=== PATIENT | female | born 1965 | race Caucasian/White ===

== ENCOUNTER 2022-05-20 11:11 | Emergency (ER) | payer OTHER, SELFPAY ==
[2022-05-20] VITALS (14 sets, daily range): BP systolic 90–136; BP diastolic 47–73; PULSE 77–103; TEMP 37.2–37.3; O2SAT 94–97; BMI 44.9
--- NOTE | 2022-05-20 11:59 | ED_ITS ---
HPI - General Adult General Chief complaint: Chest Pain Stated complaint: Chest heaviness Time Seen by Provider: 05/20/22 11:29 History of Present Illness HPI narrative: 56-year-old woman presenting to the emergency department on advice of work to be evaluated. She has had over the last day chills, sore throat, myalgias. She is fully vaccinated for COVID and influenza. She just feels ?not right?. Has had some diarrhea though this has been going on for about a month and she suspects related to some bad food ingestion and just has not managed to normalize. No rashes. No vomiting. Note is made of 1st degree heart block and with that this along with some chest pressure (does note a history of suspected radicular pain from back manifesting as chest discomfort) was recommended to go to the ER. Not exactly describing shortness of breath. Has COVID tested herself twice at home and been negative. Wonders about potential influenza. Related Data Home Medications Medication Instructions Recorded Confirmed COVID-19 antigen test ([facility] 05/20/22 05/20/22 COVID-19 Antigen Home Test kit) atorvastatin 10 mg tablet mg 05/20/22 buspirone 30 mg tablet mg 05/20/22 citalopram 20 mg tablet mg 05/20/22 levothyroxine 200 mcg tablet mcg 05/20/22 levothyroxine 25 mcg tablet mcg 05/20/22 levothyroxine 50 mcg tablet mcg 05/20/22 lorazepam 0.5 mg tablet mg 05/20/22 montelukast 10 mg tablet mg 05/20/22 orphenadrine citrate 100 mg mg PO 05/20/22 tablet,extended release torsemide 5 mg tablet mg 05/20/22 trazodone 100 mg tablet mg 05/20/22 Allergies Allergy/AdvReac Type Severity Reaction Status Date / Time adhesive Allergy Unknown Verified 05/20/22 11:35 latex Allergy Unknown Verified 05/20/22 11:35 NSAIDS (Non-Steroidal Allergy Unknown Verified 05/20/22 11:35 Anti-Inflamma pollen extracts Allergy Unknown Verified 05/20/22 11:35 Review of Systems Status of ROS: Reports: 6 or more systems reviewed and unremarkable except as noted in History and below PFSH PFSH Social History Smoking Status: Former smoker Do you use any of these nicotine containing products: None Second hand tobacco smoke exposure: No How often do you have a drink containing alcohol: monthly or less AUDIT-C Alcohol total score: 1 Non-prescribed substance use: denies use Exam Narrative: Exam Narrative: Pleasant. Easily conversant. Appears tired. Not tachypneic but slightly labored in breaths. Clearly uncomfortable. Skin is warm and dry. No rash is evident. No extremity edema. Well perfused central and peripherally. Lungs are clear. Heart in an elevated rate at a regular rhythm. Abdomen is soft and nontender. Normoactive bowel sounds. Oropharynx WNL. Const: Vital Signs, click to edit/add: Vital Signs - 24 hr 05/20/22 11:26 05/20/22 11:36 05/20/22 11:44 Temperature 99.2 F Pulse Rate 86 86 Pulse Rate [Pulse Oximeter] 103 H Blood Pressure 129/56 L Blood Pressure [Ri ght Upper Arm] 136/73 Pulse Oximetry 96 94 95 Oxygen Delivery Me thod Room Air 05/20/22 12:00 05/20/22 12:02 05/20/22 12:20 Temperature 98.9 F Pulse Rate 82 84 Pulse Rate [Pulse Oximeter] Blood Pressure 123/55 L Blood Pressure [Ri ght Upper Arm] Pulse Oximetry 97 95 Oxygen Delivery Me thod 05/20/22 12:03 05/20/22 12:30 05/20/22 12:34 Temperature Pulse Rate 83 85 78 Pulse Rate [Pulse Oximeter] Blood Pressure 104/58 L Blood Pressure [Ri ght Upper Arm] Pulse Oximetry 96 97 97 Oxygen Delivery Me thod 05/20/22 12:35 05/20/22 13:00 05/20/22 13:01 Temperature Pulse Rate 81 77 80 Pulse Rate [Pulse Oximeter] Blood Pressure 92/50 L Blood Pressure [Ri ght Upper Arm] Pulse Oximetry 97 97 97 Oxygen Delivery Me thod 05/20/22 13:30 05/20/22 13:32 Temperature Pulse Rate 80 79 Pulse Rate [Pulse Oximeter] Blood Pressure 90/47 L Blood Pressure [Ri ght Upper Arm] Pulse Oximetry 95 97 Oxygen Delivery Me thod Documenting provider has reviewed patient's vital signs: yes Course Vital Signs Vital signs: Initial Vital Signs Temperature 99.2 F 05/20/22 11:26 Temperature Source Temporal Artery Scan 05/20/22 11:26 Pulse Rate 103 H 05/20/22 11:26 Blood Pressure 136/73 05/20/22 11:26 Blood Pressure Mean 94 05/20/22 11:26 Blood Pressure Position Sitting 05/20/22 11:26 Pulse Oximetry 96 05/20/22 11:26 Oxygen Delivery Method 05/20/22 11:26 Vital Signs Temperature 99.2 F 05/20/22 11:26 Pulse Rate 103 H 05/20/22 11:26 Blood Pressure 136/73 05/20/22 11:26 Pulse Oximetry 96 05/20/22 11:26 Oxygen Delivery Method 05/20/22 11:26 Temperature 98.9 F 05/20/22 12:20 Pulse Rate 79 05/20/22 13:32 Blood Pressure 90/47 L 05/20/22 13:32 Pulse Oximetry 97 05/20/22 13:32 Oxygen Delivery Method 05/20/22 11:26 Medical Decision Making MDM Narrative Medical decision making narrative: Really seems to have viral mediated illness. With suspect chest pressure continuum of myalgias. It appears she would like to feel little bit better and so IV is established. Receives normal saline IV and ketorolac injection. On reassessment is a generally improved though sore throat lingers. Labs are reassuring with mildly elevated white count pending troponin. Negative for COVID influenza. Negative troponin Lab Data Labs: Lab Results 05/20/22 05/20/22 05/20/22 Range/Units 11:15 11:40 11:40 WBC 12.73 H (4.50-11.00) K/uL RBC 4.29 (4.00-5.20) m/uL Hgb 13.2 (12.0-16.0) gm/dL Hct 39.3 (33.0-51.0) % MCV 92 (80-100) fL MCH 31 (26-34) pg MCHC 34 (32-36) gm/dL RDW Coeff of Joel 12.6 (11.5-15.5) % Plt Count 190 (140-440) K/uL Neut % (Auto) 74.0 H (42.0-72.0) % Lymph % (Auto) 12.6 L (20-44) % Green % (Auto) 12.1 H (0.0-11.0) % Eos % (Auto) 0.8 (0.0-7.0) % Baso % (Auto) 0.3 (0.0-3.0) % Neut # (Auto) 9.40 H (1.7-7.0) K/uL Lymph # (Auto) 1.60 (0.90-2.90) K/uL Green # (Auto) 1.50 H (0.00-0.90) K/UL Eos # (Auto) 0.10 (0.00-0.50) K/uL Baso # (Auto) 0.00 (0.00-0.30) K/uL Sodium 139 (135-149) mmol/L Potassium 4.0 (3.6-5.1) mmol/L Chloride 106 (96-114) mmol/L Carbon Dioxide 29 (20-32) mmol/L BUN 10 (7-30) mg/dL Creatinine 0.7 (0.5-1.5) mg/dL Estimated Creat Clear 78.83 Estimated GFR 100 ml/min Glucose 108 (60-115) mg/dL Calcium 8.8 (8.4-10.6) mg/dL Troponin I < 0.01 L (0.01-0.04) ng/mL SARS-CoV-2 (PCR) Negative SARS-CoV-2 (Negative) Influenza Type A (PCR) Negative PCR FLU A (Negative) Influenza Type B (PCR) Negative PCR FLU B (Negative) RSV (PCR) Negative PCR RSV (Negative) ECG Data Attestation: I personally reviewed and interpreted this ECG as follows: (Sinus rhythm with first-degree AV block rate of 90) Discharge Plan Discharge Clinical Impression: Myalgia, Viral illness, Pharyngitis Condition: Improved Instructions: Pharyngitis (ED) Additional Instructions: Continue to focus on hydration. I do hope you are feeling better in 24-48 hours. Of course return for increasing persistent shortness of breath, uncontrolled fever, significant increase in intensity or unusual quality to chest pain. Sounds like you have pain medications that might yet be helpful. Prescriptions: No Action atorvastatin 10 mg tablet levothyroxine 25 mcg tablet citalopram 20 mg tablet lorazepam 0.5 mg tablet trazodone 100 mg tablet torsemide 5 mg tablet levothyroxine 50 mcg tablet buspirone 30 mg tablet orphenadrine citrate 100 mg tablet extended release PO montelukast 10 mg tablet levothyroxine 200 mcg tablet (DME) [employer] COVID-19 Ag Home Test Kit MISCELLANEOUS Follow Up/Referrals: Paty Hernandez MD [Primary Care Provider] -
[2022-05-20] MEDS: 0.9 % SODIUM CHLORIDE 1000 ml 1,000 ML IV (12:01)
[2022-05-20] MEDS: KETOROLAC 30 MG/ML inj IVP (12:01)
[2022-05-20 12:04] LABS: Basophils Percent Auto 0.3 % (0.0-3.0); Eosinophils Percent Auto 0.8 % (0.0-7.0); Hematocrit 39.3 % (33.0-51.0); Hemoglobin* 13.2 gm/dL (12.0-16.0); Immature Granulocytes Pct Auto 0.2 %; Lymphocytes Percent Auto 12.6 % (20-44); Mean Corpuscular HGB Conc 34 gm/dL (32-36); Mean Corpuscular Hemoglobin 31 pg (26-34); Mean Corpuscular Volume 92 fL (80-100); Monocytes Percent Auto 12.1 % (0.0-11.0); Platelet Count* 190 K/uL (140-440); RDW Coefficient of Variation % 12.6 % (11.5-15.5); Red Blood Count 4.29 m/uL (4.00-5.20); White Blood Count* 12.73 K/uL (4.50-11.00)
[2022-05-20 12:04] LABS: PCR FLU A Negative PCR FLU A (Negative); PCR FLU B Negative PCR FLU B (Negative); PCR RSV Negative PCR RSV (Negative)
[2022-05-20 12:09] LABS: SARS PCR* Negative SARS-CoV-2 (Negative)
[2022-05-20 12:12] LABS: Chloride* 106 mmol/L (96-114)
[2022-05-20 12:13] LABS: Sodium* 139 mmol/L (135-149)
[2022-05-20 12:15] LABS: Carbon Dioxide* 29 mmol/L (20-32); Creatinine* 0.7 mg/dL (0.5-1.5); Est. Creatinine Clearance* 78.83; Estimated Glomerular Filt Rate 100 ml/min; Slide Review Reflex No
[2022-05-20 12:16] LABS: Blood Urea Nitrogen* 10 mg/dL (7-30); Calcium* 8.8 mg/dL (8.4-10.6); Glucose* 108 mg/dL (60-115)
[2022-05-20 13:28] LABS: Troponin I* < 0.01 ng/mL (0.01-0.04)
== END 2022-05-20 14:08 | disposition home or self-care (01) ==
PROVIDERS: Emergency Provider Family Medicine; PCP Family Medicine
DX: J02.9 Acute pharyngitis, unspecified (principal); M79.10 Myalgia, unspecified site; B34.9 Viral infection, unspecified
CPT/HCPCS: 36415; 80048; 84484; 85025; 87502; 87634; 87635; 93005; 96374; 99283; 99284; J1885; J7030

== ENCOUNTER 2022-07-09 08:04 | Outpatient (CLI) | payer OTHER, SELFPAY ==
--- NOTE | 2022-07-09 08:15 | MR_ITS ---
[address] [address] Phone:?[phone] Fax:?[phone] Referring Physician Information: Paty Hernandez M.D. [address] [facility] [address] Phone:?[phone] Fax:?[phone] Patient:Marie Arriaga D.O.B:?1965 Sex:?Female Phone:?[phone] [facility] MRN:?[id number] Exam Date:?07/09/2022 ? EXAM: MRI of the RIGHT SHOULDER, without contrast CLINICAL HISTORY: Chronic right shoulder pain. COMPARISONS: None available. TECHNICAL: MRI sequences of the right shoulder: Axials: PD, T2 Coronals: PD, STIR, T2 Sagittals: PD, T2 SEDATION: None CONTRAST: None FINDINGS: Bones: No fracture or suspicious bone marrow signal abnormality. Coracoacromial arch: Acromion: No os acromiale. Type I-II acromion. Acromiohumeral space: The bony distance is unremarkable. Coracohumeral space: The bony distance is unremarkable. Acromioclavicular joint: Moderate degenerative changes with substantial superior osteophytosis/hypertrophy and mild inferior osteophytosis/hypertrophy effacing the adjacent portion of the supraspinatus myotendinous junction. Coracoclavicular ligament: The coracoclavicular ligament is intact. Rotator cuff muscles/tendons: Supraspinatus: 8 x 8 mm high-grade partial-thickness bursal sided tear of the supraspinatus tendon insertional footprint contacts the cortical insertional surface and is superimposed upon mild supraspinatus tendinopathy. No muscular atrophy. Infraspinatus: Interstitial delamination and mild tendinopathy of the infraspinatus tendon. No muscular atrophy. Teres minor: The teres minor tendon and muscle are intact. Subscapularis: The subscapularis tendon and muscle are intact. Labrum and glenohumeral joint: Fraying/ill-defined tearing of the superior and posterosuperior portions of the labrum. Small glenohumeral joint effusion. No full-thickness chondral defect or subchondral bone marrow edema/cystic change is seen. No convincing evidence of capsular edema or thickening although evaluation is suboptimal because of lack of joint distention. Proximal biceps tendon, long head and short heads: The long and short heads of the proximal biceps tendon are intact. Bursae: Subacromial/subdeltoid: Marked bursitis. Subcoracoid: No convincing subcoracoid bursal thickening/bursitis. IMPRESSION: 1. 8 x 8 mm high-grade partial-thickness bursal sided tear of the supraspinatus tendon insertional footprint contacts the cortical insertional surface and is superimposed upon mild supraspinatus tendinopathy. 2. Interstitial delamination and mild tendinopathy of the infraspinatus tendon. 3. Marked subacromial/subdeltoid bursitis. 4. Moderate acromioclavicular joint degenerative changes with substantial superior osteophytosis/hypertrophy and mild inferior osteophytosis/hypertrophy effacing the adjacent portion of the supraspinatus myotendinous junction. 5. Fraying/ill-defined tearing of the superior and posterosuperior portions of labrum. 6. Small glenohumeral joint effusion. 7. Intact biceps tendon. RCB Electronically signed on 07/09/2022 11:37:00 AM by Eduar Chavez M.D.
== END 2022-07-09 08:05 | disposition home or self-care (01) ==
LOC: MRI 08:05
PROVIDERS: PCP Family Medicine; Visit Provider Family Medicine
DX: M25.511 Pain in right shoulder (principal); M75.101 Unspecified rotator cuff tear or rupture of right shoulder, not specified as traumatic; M75.51 Bursitis of right shoulder; M19.011 Primary osteoarthritis, right shoulder; S43.431A Superior glenoid labrum lesion of right shoulder, initial encounter; M25.411 Effusion, right shoulder
CPT/HCPCS: 73221

== ENCOUNTER 2022-10-15 06:59 | Day surgery (SDC) | payer OTHER, SELFPAY ==
[2022-10-15] VITALS (17 sets, daily range): BP systolic 83–132; BP diastolic 48–75; PULSE 49–89; RESP 10–16; TEMP 36.1–36.7; O2SAT 91–96; BMI 46.5
[2022-10-15] MEDS: ACETAMINOPHEN 500 MG TABLET 1000 MG PO (07:27)
[2022-10-15] MEDS: OXYCODONE (CR) 10 MG TAB.ER.12H PO (07:27)
[2022-10-15] MEDS: LACTATED RINGERS 1000 ML 1,000 ML 100 ML IV (07:30)
[2022-10-15] MEDS: SODIUM CHLORIDE 0.9 % (FLUSH) 10 ML SYRINGE IVF (07:30)
[2022-10-15] MEDS: fentaNYL 100 MCG/2 ML inj IVP (08:22)
[2022-10-15] MEDS: MIDAZOLAM HCL 1 MG/ML inj IVP (08:22)
--- NOTE | 2022-10-15 08:29 | SUR.PREOP ---
TIME?OUT:?0825 PT/RN/MDA?VERIFICATION?OF?SURGICAL?SITE,?PROCEDURE,?AND?CONSENT OBTAINED?PRIOR?TO?INVASIVE?PROCEDURE.
[2022-10-15] MEDS: CEFAZOLIN 2 GM INJ IVP (08:50)
[2022-10-15] MEDS: EPINEPHrine 1 MG in SODIUM CHLORIDE IRRIG SOLUTION 3,000 ML 3001 MG IRRIGATION ×4 (08:50→09:50)
--- NOTE | 2022-10-15 09:59 | P.NB_ITS ---
Nerve Block Nerve Block Time Seen by Provider: 08:27 Date Seen: 10/15/22 Type of block requested by surgeon for post-operative analgesia: supraclavicular Side: right Time out performed: Yes Verification of patient name: Yes Verification of date of : Yes Site marking: site marked Name of person performing procedure: Simin Assistants, if any: Cipriano Continuous monitoring Was continuous monitoring of O2 sat, B/P, nuclear monitoring technician, recorded every 15 minutes?: Yes Procedure Checklist: sterile prep, needles and gloves Ultrasound guided. Images saved: Yes Medications given in 5ml increments after negative aspiration: Ropivicaine %: 0.5 mL: 20 Needle gauge: 22 Decadron (mg): 10 Precedex (mcg): 25 Patient tolerated procedure well: Yes Block Charges Block Charge (with Pro Fee): Brachial Plexus Use of Ultrasound Machine for Block: Yes- US Guidance/pain block
--- NOTE | 2022-10-15 10:00 | W.ANESCHARGE ---
Anesthesia Charges Start Date/Time Anesthesia Start Date: 10/15/22 Anesthesia Start Time: 08:40 Stop Date/Time Anesthesia Stop Date: 10/15/22 Anesthesia Stop Time: 10:51
--- NOTE | 2022-10-15 10:20 | PM.ORPRC ---
Procedure Note Date of procedure: 10/15/22 Procedure: PREOPERATIVE DIAGNOSIS: Right shoulder rotator cuff tear, AC joint arthrosis POSTOPERATIVE DIAGNOSIS: Right shoulder rotator cuff tear, AC joint arthrosis NAME OF OPERATION: Right shoulder arthroscopic subacromial decompression, distal clavicle excision, mini open rotator cuff repair SURGEON: Stanford Branch MD EXPORT COORDINATOR: REINALDO Devries ANESTHESIA: Supraclavicular block plus general endotracheal ESTIMATED BLOOD LOSS: 5 mL COMPLICATIONS: None SPECIMENS: None DRAINS: None PREOPERATIVE ANTIBIOTICS: Ancef 3 grams INDICATIONS: The patient is a 57-year-old with a history of right shoulder pain secondary to the above diagnoses. Despite appropriate non operative management, they continue to have symptoms. Operative intervention was recommended. The risks, benefits and expected outcomes were discussed in detail. These included but were not limited to: Infection, bleeding, injury to blood vessel or nerve, venous thromboembolism. All questions were answered to their satisfaction. PROCEDURE: A supraclavicular block was placed by Anesthesia. General anesthesia was administered. The patient was placed in the high beach chair position. The right shoulder was prepped and draped in the usual sterile fashion. The glenohumeral joint was infiltrated with 20 mL of normal saline with epinephrine. The posterior portal was established, the arthroscope was introduced. The anterior portal was established, Diagnostic arthroscopy was performed with findings as follows: The biceps and biceps anchor are intact. The anterior, posterior and superior labrum are normal. Articular surfaces on the humeral head and glenoid are normal. There are no loose bodies. There is a high-grade partial-thickness/small full-thickness tear of the supraspinatus. The subscap is intact. The undersurface of the supraspinatus was debrided with the shaver, exposing the full-thickness tear. The arthroscope was placed in the subacromial space, the lateral portal was established. The Arthrex Anita was used to dissect the acromion free. The CA ligament was recessed off the anterior acromion, the AC joint was exposed. The acromioplasty was performed with the bur in the posterior portal. The bur was then placed in the lateral portal and the lateral and anterior aspect of the acromion were resected. The undersurface of the distal clavicle was resected through the lateral portal. Finally, the bur was placed in the anterior portal and the remainder of the distal clavicle was resected for a total of 10 mm. An accessory anterolateral portal was placed. The subacromial/subdeltoid bursa was aggressively debrided. There is a small full-thickness tear of the supraspinatus. Arthroscopic instruments were removed. The accessory anterolateral portal was extended proximally and distally, subcutaneous dissection was taken with electrocautery to the deltoid. The deltoid was divided in line with its fibers. The static retractor was placed. The subacromial/subdeltoid bursa was debrided with the Gonzalez scissors. The greater tuberosity was debrided to punctate bleeding bone using the arthroscopic bur. An Arthrex BioComposite SwiveLock anchor was placed just off the articular surface. Both limbs of the FiberWire and fiber tape were passed using the scorpion. A fiber link was placed in the leading edge of the rotator cuff x2. We then proceeded with a lateral row of SwiveLock anchors x 2 crossing the FiberTape and incorporating the FiberWire and fiber link into each lateral row anchor. The FiberWire suture in the eyelet of the posterior, lateral row anchor was passed with the leading edge of the rotator cuff and tied, resulting in a simple suture. The anterior FiberWire suture in the eyelet was unloaded. This provides an anatomic, watertight repair of the rotator cuff. There is no tension on the repair with the shoulder at 0? abduction. The wound was irrigated with normal saline off the pump. The deltoid was repaired with an 0 Vicryl in an interrupted [id number] fashion. Subcutaneous tissues were closed with a 3-0 Vicryl. Skin was closed with a 3-0 Monocryl in a subcuticular fashion. A dry dressing, polar care and sling were applied. Sponge and needle counts were correct x2. The patient tolerated the procedure well. There were no apparent complications. They were carefully transferred to the hospital bed and taken to the postanesthesia care unit in satisfactory condition. PLAN: The patient will be discharged to home. No active range of motion of the shoulder will be allowed for 6 weeks postoperatively. They can work on active range of motion of the elbow, wrist and fingers. They will follow up in the office next week for a wound check and an AP and transscapular Y-view of the shoulder prior to being seen.
--- NOTE | 2022-10-15 10:53 | W.ANESCHARGE ---
Anesthesia Charges Start Date/Time Anesthesia Start Date: 10/15/22 Anesthesia Start Time: 08:40 Stop Date/Time Anesthesia Stop Date: 10/15/22 Anesthesia Stop Time: 10:51
[2022-10-15] MEDS: ONDANSETRON 2 MG/ML inj 4 MG IVP (11:36)
--- NOTE | 2022-10-15 11:47 | SUR.PHASEII ---
pt tolerating ice chips, c/o nausea, zofran given. at bedside.
--- NOTE | 2022-10-15 11:57 | SUR.PHASEII ---
report given, pts vss, at bedside. still c/o nausea, tolerating small amounts of ice chips. warm blankets given. polar care on, began reviewing discharge instrucions with pt and pt's .
== END 2022-10-15 13:00 | disposition home or self-care (01) ==
PROVIDERS: PCP Family Medicine; Visit Provider Orthopaedic Surgery
PROC: (CPT 23412; principal; 2022-10-15 08:30)
DX: M75.101 Unspecified rotator cuff tear or rupture of right shoulder, not specified as traumatic (principal); M19.011 Primary osteoarthritis, right shoulder; G89.18 Other acute postprocedural pain
CPT/HCPCS: 29826; 29824; 23412; 01630; 64415; 76942; A9270; C1713; J0171; J0330; J0690; J1100; J2250; J2405; J2704; J3010; J7120; L3670

== ENCOUNTER 2023-07-12 11:08 | Emergency (ER) | payer OTHER, SELFPAY ==
[2023-07-12 11:17] VITALS: BP 135/82; PULSE 86; RESP 18; TEMP 37.4; O2SAT 93; BMI 46.6
[2023-07-12 12:23] LABS: PCR FLU A Negative PCR FLU A (Negative); PCR FLU B Negative PCR FLU B (Negative); PCR RSV Negative PCR RSV (Negative); SARS PCR* Negative SARS-CoV-2 (Negative)
--- NOTE | 2023-07-12 14:54 | CT_ITS ---
Patient: JHONATAN STEVENS Facility:?[facility] Patient ID:?[id number] Site Patient ID:?[id number]. Site :?1965 Study:?CT-Chest W/O-07/12/2023 3:34:36 PM Ordering Physician:LEONARDO Final Report: INDICATION: Shortness of breath. TECHNIQUE: CT chest without contrast. COMPARISON: None. FINDINGS: Lungs and pleura: No suspicious nodules or infiltrates. Trace scattered atelectasis. No pleural effusions, pleural thickening, or pneumothorax. Heart and vasculature: Heart size is normal. Thoracic aorta and pulmonary artery are normal in caliber. Lymph nodes/mediastinum: No mediastinal, hilar, or axillary adenopathy. Chest wall: No masses. Upper abdomen: No significant findings. Bones: Unremarkable for age. IMPRESSION: No acute intrathoracic abnormality. Please note that all CT scans at this facility use dose modulation, iterative reconstruction, and/or weight-based dosing when appropriate to reduce radiation dose to as low as reasonably achievable. Dictated by Mane Morrow MD @ 07/12/2023 3:59:24 PM Signed by:?Mane Morrow MD @07/12/2023 3:59:24 PM (Electronic Signature)
[2023-07-12 15:15] LABS: Basophils Percent Auto 0.5 % (0.0-3.0); Eosinophils Percent Auto 2.3 % (0.0-7.0); Hematocrit 39.2 % (33.0-51.0); Hemoglobin* 12.9 gm/dL (12.0-16.0); Immature Granulocytes Pct Auto 0.4 %; Lymphocytes Percent Auto 23.2 % (20-44); Mean Corpuscular HGB Conc 33 gm/dL (32-36); Mean Corpuscular Hemoglobin 31 pg (26-34); Mean Corpuscular Volume 93 fL (80-100); Monocytes Percent Auto 13.1 % (0.0-11.0); Neutrophils Percent Auto 60.5 % (42.0-72.0); Platelet Count* 211 K/uL (140-440); Red Blood Count 4.22 m/uL (4.00-5.20); White Blood Count* 11.29 K/uL (4.50-11.00)
[2023-07-12 15:22] LABS: Slide Review Reflex No
[2023-07-12 15:31] LABS: Chloride* 107 mmol/L (96-114); Sodium* 138 mmol/L (135-149)
[2023-07-12 15:33] LABS: Creatinine* 0.7 mg/dL (0.5-1.5); Est. Creatinine Clearance* 77.87; Estimated Glomerular Filt Rate 100 ml/min
[2023-07-12 15:34] LABS: Anion Gap 3 mEq/L (7-15); Blood Urea Nitrogen* 10 mg/dL (7-30); Calcium* 8.9 mg/dL (8.4-10.6); Carbon Dioxide* 28 mmol/L (20-32); Glucose* 109 mg/dL (60-115)
--- NOTE | 2023-07-12 16:18 | ED.GENADULT ---
HPI - General Adult General Date Seen: 07/12/23 Chief complaint: Cough Stated complaint: shortness of breath,increased cough Time Seen by Provider: 07/12/23 14:45 Source: patient Mode of arrival: ambulatory Limitations: no limitations History of Present Illness HPI narrative: Patient is a 57-year-old female presenting to the emergency department for shortness of breath, chest pain, fevers, chills, cough. Symptoms may going to the past 5 days and have been getting worse. She had a virtual visit today and was recommend to come to the emergency department. She states when the symptoms 1st started she thought there allergies goes she has allergy induced asthma like it is ready worse this time of the year. She is taking her breathing treatments without any improvement. She states now she is coughing a lot and developed right-sided chest pain yesterday. She thinks is musculoskeletal in nature from the coughing. States she has had pain like this before has had her heart checked multiple times. Last fever was yesterday. Is having a nonproductive cough. She was around her granddaughter last weekend who had RSV. Has been taking Tylenol and cough syrup without improvement. Related Data Home Medications Medication Instructions Recorded Confirmed COVID-19 antigen test (Flowflex 05/20/22 01/27/23 COVID-19 Antigen Home Test kit) buspirone 30 mg tablet 30 mg PO BID 05/20/22 01/27/23 citalopram 20 mg tablet mg 05/20/22 01/27/23 levothyroxine 200 mcg tablet 200 mcg PO DAILY 05/20/22 01/27/23 levothyroxine 50 mcg tablet 50 mcg PO DAILY 05/20/22 01/27/23 lorazepam 0.5 mg tablet 0.5 mg PO HS PRN 05/20/22 01/27/23 montelukast 10 mg tablet 10 mg PO DAILY 05/20/22 01/27/23 orphenadrine citrate 100 mg 100 mg PO BID PRN 05/20/22 01/27/23 tablet,extended release torsemide 5 mg tablet 5 mg PO DAILY 05/20/22 01/27/23 trazodone 100 mg tablet 100 mg PO HS 05/20/22 01/27/23 cetirizine 10 mg capsule (Zyrtec) 10 mg PO QDAY PRN 07/27/22 01/27/23 guaifenesin 600 mg tablet, 600 mg PO BID 07/27/22 01/27/23 extended release 12 hr (Mucinex) albuterol sulfate 90 mcg/actuation 1 - 2 inh inhalation Q4H PRN 10/13/22 01/27/23 aerosol inhaler atorvastatin 10 mg tablet (Lipitor) 10 mg PO DAILY 10/13/22 01/27/23 calcium citrate 200 mg 1 tab PO BID 10/13/22 01/27/23 calcium-vitamin D3 6.25 mcg (250 unit) tablet celecoxib 200 mg capsule 200 mg PO DAILY 10/13/22 01/27/23 cholecalciferol (vitamin D3) 125 125 mcg PO DAILY 10/13/22 01/27/23 mcg (5,000 unit) capsule cyanocobalamin (vitamin B-12) 2,500 mcg sublingual DAILY 10/13/22 01/27/23 2,500 mcg sublingual lozenge nitroglycerin 0.4 mg sublingual 0.4 mg sublingual Q5-15M PRN 10/13/22 01/27/23 tablet (Nitrostat) Previous Rx's Medication Instructions Recorded methylprednisolone 4 mg tablets in See Rx Instructions PO PER PKG DIR 01/27/23 a dose pack #21 ea nirmatrelvir 300 mg (150 mg See Rx Instructions PO .COMPLEX 01/27/23 x2)-ritonavir 100 mg tablet,dose #30 ea pack prednisone 20 mg tablet 40 mg (2 x 20 mg) PO DAILY #10 tabs 07/12/23 Allergies Allergy/AdvReac Type Severity Reaction Status Date / Time adhesive Allergy Unknown Verified 07/12/23 11:23 latex Allergy Unknown Verified 07/12/23 11:23 NSAIDS (Non-Steroidal Allergy Unknown Verified 07/12/23 11:23 Anti-Inflamma pollen extracts Allergy Unknown Verified 07/12/23 11:23 Review of Systems Status of ROS: Reports: 10 or more systems reviewed and unremarkable except as noted in History and below [facility] Medical History History of pleurisy ?Z87.09 - Personal history of other diseases of the respiratory system (ICD-10) Chest wall pain ?R07.89 - Other chest pain (ICD-10) Low back pain ?M54.50 - Low back pain, unspecified (ICD-10) Glucose intolerance ?E74.39 - Other disorders of intestinal carbohydrate absorption (ICD-10) DDD (degenerative disc disease) Cervical radiculitis ?M54.12 - Radiculopathy, cervical region (ICD-10) Asthma ?J45.909 - Unspecified asthma, uncomplicated (ICD-10) NYASIA (obstructive sleep apnea) ?G47.33 - Obstructive sleep apnea (adult) (pediatric) (ICD-10) Hypothyroid ?E03.9 - Hypothyroidism, unspecified (ICD-10) Depression ?F32.A - Depression, unspecified (ICD-10) Anxiety ?F41.9 - Anxiety disorder, unspecified (ICD-10) Lower extremity edema ?R60.0 - Localized edema (ICD-10) Allergies ?T78.40XA - Allergy, unspecified, initial encounter (ICD-10) Hyperlipidemia ?E78.5 - Hyperlipidemia, unspecified (ICD-10) MCL sprain of right knee ?S83.411A - Sprain of medial collateral ligament of right knee, initial encounter (ICD-10) Surgical History History of arthroscopy of right shoulder (10/15/22) ?Z98.890 - Other specified postprocedural states (ICD-10) Hx of hernia repair ?Z98.890 - Other specified postprocedural states (ICD-10) ?Z87.19 - Personal history of other diseases of the digestive system (ICD-10) History of sleeve gastrectomy ?Z90.3 - Acquired absence of stomach [part of] (ICD-10) Hx of tonsillectomy ?Z90.89 - Acquired absence of other organs (ICD-10) H/O: hysterectomy ?Z90.710 - Acquired absence of both cervix and uterus (ICD-10) Previous section ?Z98.891 - History of uterine scar from previous surgery (ICD-10) Social History Smoking Status: Former smoker What tobacco products do you use: cigarettes Smoking quit date/years: >15 years ago Do you use any of these nicotine containing products: None Second hand tobacco smoke exposure: No How often do you have a drink containing alcohol: monthly or less Alcohol type: hard liquor How many standard drinks containing alcohol do you have on a typical day: 3 or 4 How often do you have six or more drinks on one occasion: Never AUDIT-C Alcohol total score: 2 Non-prescribed substance use: denies use Caffeine: Yes (5 cups per day) Are you using contraception or practicing any form of control: No service: No Exam Narrative: Exam Narrative: Const: Well-nourished, Well-developed, in mild distress Eyes: PERRL, no conjunctival injection, and symmetrical lids HENT: Atraumatic external nose and ears. Moist mucous membranes. Neck: Symmetric, trachea midline, No thyromegaly. CVS: RRR, No murmurs or gallops. Peripheral pulses 2+ and equal in all extremities RESP: Unlabored respiratory effort. Clear to auscultation bilaterally. GI: Nontender/Nondistended, No rebound or guarding. MSK:Extremities w/o deformity, Normal Active ROM, right-sided chest tenderness Skin: Warm, Dry. No rashes or lesions. Neuro: Normal Muscle tone, No focal neurological deficits. Psych: Awake, Alert, & Oriented x3. Appropriate mood and affect. Const: Vital Signs, click to edit/add: Vital Signs - 24 hr 07/12/23 11:17 Temperature 99.4 F Pulse Rate [Right] 86 Respiratory Rate 18 Blood Pressure [Ri ght Upper Arm] 135/82 Pulse Oximetry 93 Oxygen Delivery Me thod Room Air Course Vital Signs Vital signs: Initial Vital Signs Temperature 99.4 F 07/12/23 11:17 Temperature Source Temporal Artery Scan 07/12/23 11:17 Pulse Rate 86 07/12/23 11:17 Respiratory Rate 18 07/12/23 11:17 Blood Pressure 135/82 07/12/23 11:17 Blood Pressure Mean 99 07/12/23 11:17 Blood Pressure Position Sitting 07/12/23 11:17 Pulse Oximetry 93 07/12/23 11:17 Oxygen Delivery Method Room Air 07/12/23 11:17 Vital Signs Temperature 99.4 F 07/12/23 11:17 Pulse Rate 86 07/12/23 11:17 Respiratory Rate 18 07/12/23 11:17 Blood Pressure 135/82 07/12/23 11:17 Pulse Oximetry 93 07/12/23 11:17 Oxygen Delivery Method Room Air 07/12/23 11:17 Temperature 99.4 F 07/12/23 11:17 Pulse Rate 86 07/12/23 11:17 Respiratory Rate 18 07/12/23 11:17 Blood Pressure 135/82 07/12/23 11:17 Pulse Oximetry 93 07/12/23 11:17 Oxygen Delivery Method Room Air 07/12/23 11:17 Medical Decision Making MDM Narrative Medical decision making narrative: Patient is a 57-year-old female presenting for what sounds like viral symptoms. Consider range the symptoms have been getting worse since she has been having fevers with shortness of breath find it reasonable to do imaging to look for signs of pneumonia. While I could do chest x-ray it can use the medicine pneumonia so I will do a CT scan to better evaluate this. COVID/flu/RSV test ordered. We will also do a troponin and ECG to look for signs of ACS. BMP and CBC order to look for other signs of infection or electrolyte abnormalities. Lab work all returned showing no concerning abnormalities. COVID/flu/RSV is negative. EKG and troponin shows no signs of ACS. CT scan was done it and does not show any signs of acute pneumonias. Patient is otherwise doing well I do think she is safe for discharge. This is most likely a viral syndrome. She is agreeable to this plan. Considering the 2nd also be related to her allergies I will give her steroid burst. Lab Data Labs: Lab Results 07/12/23 07/12/23 Range/Units 11:40 15:05 WBC 11.29 H (4.50-11.00) K/uL RBC 4.22 (4.00-5.20) m/uL Hgb 12.9 (12.0-16.0) gm/dL Hct 39.2 (33.0-51.0) % MCV 93 (80-100) fL MCH 31 (26-34) pg MCHC 33 (32-36) gm/dL RDW Coeff of Joel 13.0 (11.5-15.5) % Plt Count 211 (140-440) K/uL Neut % (Auto) 60.5 (42.0-72.0) % Lymph % (Auto) 23.2 (20-44) % [place] % (Auto) 13.1 H (0.0-11.0) % Eos % (Auto) 2.3 (0.0-7.0) % Baso % (Auto) 0.5 (0.0-3.0) % Neut # (Auto) 6.80 (1.7-7.0) K/uL Lymph # (Auto) 2.60 (0.90-2.90) K/uL [place] # (Auto) 1.50 H (0.00-0.90) K/UL Eos # (Auto) 0.30 (0.00-0.50) K/uL Baso # (Auto) 0.10 (0.00-0.30) K/uL Abs Immat Gran (auto) 0.00 (0.00-0.30) K/uL Imm/Tot Granulo (auto) 0.4 % Sodium 138 (135-149) mmol/L Potassium 4.0 (3.6-5.1) mmol/L Chloride 107 (96-114) mmol/L Carbon Dioxide 28 (20-32) mmol/L Anion Gap 3 L (7-15) mEq/L BUN 10 (7-30) mg/dL Creatinine 0.7 (0.5-1.5) mg/dL Estimated Creat Clear 77.87 Estimated GFR 100 ml/min Glucose 109 (60-115) mg/dL Calcium 8.9 (8.4-10.6) mg/dL SARS-CoV-2 (PCR) Negative SARS-CoV-2 (Negative) Influenza Type A (PCR) Negative PCR FLU A (Negative) Influenza Type B (PCR) Negative PCR FLU B (Negative) RSV (PCR) Negative PCR RSV (Negative) POC Troponin I 0.00 L (0.01-0.04) ng/ml Imaging Data CT scan - chest: Attestation: I have reviewed the pertinent imaging results. Radiologist's impression: No acute intrathoracic abnormality. Please note that all CT scans at this facility use dose modulation, iterative reconstruction, and/or weight-based dosing when appropriate to reduce radiation dose to as low as reasonably achievable. Dictated by Mane Morrow MD @ 07/12/2023 3:59:24 PM ECG Data Attestation: I personally reviewed and interpreted this ECG as follows: Prior ECG tracings: not available for review Interpretation: Normal sinus rhythm with a first-degree AV block at a rate of 79 beats per minute, rest of intervals normal, normal axis, no ST or T-wave abnormalities. Appear similar previous EKG on file Discharge Plan Discharge Clinical Impression: Acute viral syndrome Patient Disposition: Home, Self-Care Condition: Stable Instructions: Viral Syndrome (ED) Additional Instructions: Symptoms are likely a combination of allergies and viral syndrome. I will give you a prescription of steroids to see if it helps with your symptoms. Return to emergency department for new or worsening symptoms Prescriptions: New prednisone 20 mg tablet 40 mg PO DAILY Qty: 10 0RF No Action nirmatrelvir-ritonavir 300 mg (150 mg x 2)-100 mg tablets,dose pack See Rx Instructions PO .COMPLEX Qty: 30 0RF Rx Instructions: take TWO 150 mg tablets of nirmatrelvir with ONE 100 mg tablet of ritonavir twice daily for 5 days PO methylprednisolone 4 mg tablets,dose pack See Rx Instructions PO PER PKG DIR Qty: 21 0RF Rx Instructions: PO PER PKG DIR Zyrtec 10 mg capsule 10 mg PO QDAY PRN guaifenesin [Mucinex] 600 mg tablet extended release 12hr 600 mg PO BID albuterol sulfate 90 mcg/actuation HFA aerosol inhaler 1 - 2 inh inhalation Q4H PRN calcium citrate-vitamin D3 200 mg-6.25 mcg (250 unit) tablet 1 tab PO BID celecoxib 200 mg capsule 200 mg PO DAILY cholecalciferol (vitamin D3) 125 mcg (5,000 unit) capsule 125 mcg PO DAILY cyanocobalamin (vitamin B-12) 2,500 mcg lozenge 2,500 mcg sublingual DAILY atorvastatin [Lipitor] 10 mg tablet 10 mg PO DAILY nitroglycerin [Nitrostat] 0.4 mg tablet, sublingual 0.4 mg sublingual Q5-15M PRN Rx Instructions: do not exceed 3 doses per episode citalopram 20 mg tablet lorazepam 0.5 mg tablet 0.5 mg PO HS PRN trazodone 100 mg tablet 100 mg PO HS torsemide 5 mg tablet 5 mg PO DAILY levothyroxine 50 mcg tablet 50 mcg PO DAILY buspirone 30 mg tablet 30 mg PO BID orphenadrine citrate 100 mg tablet extended release 100 mg PO BID PRN montelukast 10 mg tablet 10 mg PO DAILY levothyroxine 200 mcg tablet 200 mcg PO DAILY (DME) FlowMichael Bieker COVID-19 Ag Home Test Kit MISCELLANEOUS Follow Up/Referrals: Paty Hernandez MD [Primary Care Provider] - Stand Alone Forms: [employer] Info Instructions
== END 2023-07-12 16:44 | disposition home or self-care (01) ==
PROVIDERS: Emergency Provider Student in an Organized Health Care Education/Training Program; PCP Family Medicine
DX: B34.9 Viral infection, unspecified (principal)
CPT/HCPCS: 36415; 71250; 80048; 84484; 85025; 87631; 93005; 99283; 99284

== ENCOUNTER 2025-02-07 08:30 | Day surgery (SDC) | payer OTHER, SELFPAY ==
[2025-02-07] VITALS (12 sets, daily range): BP systolic 101–131; BP diastolic 55–87; PULSE 69–80; RESP 16; TEMP 36.7–36.9; O2SAT 91–98; BMI 47.8
[2025-02-07] MEDS: LACTATED RINGERS 1000 ML 1,000 ML 100 ML IV (08:50)
--- NOTE | 2025-02-07 10:48 | W.PM.H&PU ---
History & Physical Update History & Physical Update H&P Reviewed and patient assessed: No changes noted
[2025-02-07] MEDS: TRANEXAMIC ACID 100 MG/ML INJ 1000 MG IV (11:53)
--- NOTE | 2025-02-07 12:29 | P.ORPRC_ITS ---
Procedure Note Date of procedure: 02/07/25 Procedure: PREOPERATIVE DIAGNOSIS: 1. Right knee Cortez Dayami lesion POSTOPERATIVE DIAGNOSIS: 1. Right knee aseptic bursitis PROCEDURE: 1. Right knee incision, drainage, and prepatellar bursectomy SURGEON: Samson Perdmoo MD. FURNITURE LUMBER PRODUCTION WORKER: Indira Madison P.A.-C. - Of note, an assistant property manager was critical for this case to aid in patient positioning, tissue retraction, limb manipulation/positioning, and wound closure. ANESTHESIA: Spinal anesthetic TOURNIQUET: Not utilized ESTIMATED BLOOD LOSS: 50 mL COMPLICATIONS: None evident SPECIMENS: Prepatellar bursal fluid swab sent for Gram stain, anaerobic/aerobic cultures. Prepatellar bursal tissue sent for pathology. INDICATIONS: The patient is a pleasant 59-year-old female with history of right anterior knee pain and swelling following a traumatic injury 3 months ago. Pain and swelling persisted despite conservative treatment an MRI revealed a large deep subcutaneous collection that was concerning for a Cortez Dayami lesion. Preoperatively, discussed treatment options include observation, aspiration, and surgical incision and drainage. After discussion, patient elected to proceed with incision and drainage for removal of the fluid collection and to reduce the likelihood of recurrence. Prior to surgery, risks and benefits of procedure were discussed with patient, all questions were answered, and informed consent was obtained. FINDINGS: Large collection of serous fluid between subcutaneous fat and deep fascia and thickened prepatellar bursal tissue consistent with chronic, aseptic bursitis. No warmth, erythema, or purulent fluid. DESCRIPTION OF PROCEDURE: Patient was seen preoperatively and operative site was marked. She was then brought to the operating room and placed supine on the operating table. Spinal anesthesia was administered by anesthesia staff, patient was rotated into the supine position on the OR table and all bony prominences were well padded.. A tourniquet placed the patient's right thigh but was not used during the course of the procedure. 3 g IV Ancef and 1 g tranexamic acid were administered preoperatively. The operative extremity was prepped and draped in the appropriate sterile fashion using ChloraPrep. Surgical time-out was performed confirming patient identity, surgical site, surgical procedure. A midline anterior, longitudinal incision was made centered over the patella which measured approximately 10 cm. Incision was carried through the subcutaneous tissues. Deep to the subcutaneous tissues, a large collection of clear, yellow tinged, serous fluid was encountered. This fluid was swabbed and sent for Gram stain, anaerobic/aerobic cultures. Fluid collection was then evacuated. Anterior to the patella there was thickened prepatellar bursal tissue which was excised, a portion of this tissue was sent for pathology. After the prepatellar bursa was excised, hemostasis was achieved with electrocautery. The wound was then irrigated with 2.5 L of normal saline using pulsatile lavage. Wound was then closed with 2-0 Vicryl inverted interrupted subcutaneous stitches followed by running 2-0 Stratafix and 3-0 Monocryl subcuticular stitches and Dermabond. Subcutaneous tissues were injected with 0.5% bupivacaine with epinephrine. Sterile dressing was applied followed by a 6 inch Rafita wrap and a knee immobilizer. Patient was then awoken from anesthesia and transferred to the PACU in stable condition. PLAN: 1. Weight bear as tolerated 2. Continue knee immobilizer and compression bandage for 1 week, after which time patient may advance range of motion and activities as tolerated. 3. Ice and elevation to help control pain and swelling. 4. Tylenol and oxycodone as needed for pain control. 5. Follow-up in [facility]opedic Clinic and 10-14 days for wound check. We may initiate formal physical therapy following that visit depending on patient's strength and range of motion.
[2025-02-07] MEDS: BUPIVACAINE 0.5% 30 ML INJECTION (12:45)
--- NOTE | 2025-02-07 12:59 | P.ANES_ITS ---
Anesthesia Charges Start Date/Time Anesthesia Start Date: 02/07/25 Anesthesia Start Time: 11:33 Stop Date/Time Anesthesia Stop Date: 02/07/25 Anesthesia Stop Time: 12:58 Coding CPT Codes CPT Codes: ANESTH KNEE AREA SURGERY - 42015 ([id number]) P3 - PATIENT W/SEVERE SYS DISEASE, QZ - HANG GLIDING INSTRUCTOR SVC W/O COMMUNITY REINVESTMENT ACT OFFICER BY
--- NOTE | 2025-02-07 12:59 | W.ANESCHARGE ---
Anesthesia Charges Start Date/Time Anesthesia Start Date: 02/07/25 Anesthesia Start Time: 11:33 Stop Date/Time Anesthesia Stop Date: 02/07/25 Anesthesia Stop Time: 12:58 Coding CPT Codes CPT Codes: ANESTH KNEE AREA SURGERY - 40697 ([id number]) P3 - PATIENT W/SEVERE SYS DISEASE, QZ - GALLEY BOY SVC W/O OUTSIDE MACHINIST SUPERVISOR BY
== END 2025-02-07 14:39 | disposition home or self-care (01) ==
LOC: OR 08:32
PROVIDERS: PCP Family Medicine; Visit Provider Orthopaedic Surgery
PROC: (CPT 27340; principal; 2025-02-07 09:45)
DX: M70.51 Other bursitis of knee, right knee (principal); S80.01XA Contusion of right knee, initial encounter
CPT/HCPCS: 27340; 27301; 01320; 87070; 87075; 87205; J0665; J0690; J1100; J2250; J2371; J2405; J2704; J3010; J7120